=== PATIENT | female | born 2000 | race Caucasian/White ===

== ENCOUNTER 2020-12-24 16:35 | Emergency (ER) | payer OTHER ==
[2020-12-24 17:32] LABS: BASOPHIL 0.1 % (0-2); EOSINOPHIL 0 % (0-5); HCT 40.9 % (37.0-47.0); HGB 13.9 g/dl (12.5-16.0); LYMPHOCYTE 4.1 % (15-48); MCH 30.5 pg (25.0-31.0); MCV 89.9 fL (78.0-100.0); MONOCYTE 2.3 % (0-12); MPV 9.6 fL (6.0-9.5); NRBC 0; PLT 292 K/uL (150-400); RBC 4.55 M/uL (4.20-5.40); RDW 11.9 % (11.5-14.0); WBC 11.6 K/uL (4.0-10.5)
[2020-12-24 17:35] LABS: NEUTROPHIL 93.2 % (41-80)
[2020-12-24 17:36] LABS: BILIRUBIN NEGATIVE (NEGATIVE); BLOOD TRACE-INTACT Ery/uL (NEGATIVE); CLARITY CLEAR (CLEAR); COLOR YELLOW (YELLOW); GLUCOSE (U) NORMAL (NORMAL); LEUKOCYTES NEGATIVE Leu/uL (NEGATIVE); NITRITE NEGATIVE (NEGATIVE); PROTEIN 2+ mg/dL (NEGATIVE); SPECIFIC GRAVITY >=1.030 (1.001-1.030); UROBILINOGEN 0.2 mg/dL (0.2-1.0)
[2020-12-24 17:45] LABS: AMORPHOUS URATES CRYSTALS LARGE; BACTERIA 1+; GRANULAR CASTS TRACE
[2020-12-24 17:48] LABS: ALBUMIN 4.9 g/dL (3.4-5.0); BILIRUBIN - TOTAL 0.8 mg/dL (0.2-1.0); BUN/CREAT RATIO (CALC) 12.9 RATIO; CREATININE 0.7 mg/dL (0.51-0.95); GLOBULIN (CALCULATION) 3.2 g/dL; TOTAL PROTEIN 8.1 g/dL (6.4-8.2)
[2020-12-24] MEDS ORDERED: BACTRIM DS TAB1 EACH PO (19:10)
[2020-12-24] MEDS ORDERED: ONDANSETRON ODT4 MG PO (19:10)
[2020-12-24] MEDS ORDERED: VENTOLIN HFA18 GM INH (19:10)
[2020-12-24] MEDS ORDERED: NAPROXEN500 MG PO (19:10)
== END 2020-12-24 20:04 | disposition home or self-care (01) ==
LOC: FER 16:35
PROVIDERS: Emergency Medicine
DX: U07.1 COVID-19 (principal); N39.0 Urinary tract infection, site not specified; F17.290 Nicotine dependence, other tobacco product, uncomplicated
CPT/HCPCS: 36415; 80053; 81001; 84145; 85025; J0696; J2405; J7030; U0002